=== PATIENT | female | born 1965 | race African-American/Black ===

== ENCOUNTER 2016-09-02 15:34 | Emergency (ER) | payer OTHER ==
[~2016-09-02] VITALS: Ht 167.6 cm; Wt 105.2 kg
[~2016-09-02 15:34] MED LIST: AMBIEN 5 MG TABL5 M1 PO; ESTRACE0.5 MG PO; FLONASE 0.05%50 MCG NASAL; KLONOPIN0.5 MG PER TUBE; NAPROSYN500 MG PO; PREDNISONE50 MG PO; TESSALON PERLE100 MG PO; VENTOLIN HFA 1818 GM INH; VITAMIN D1000 UNI1 PO; ZOLOFT 50 MG TA50 M1 PO; ZPAK PO
[2016-09-02] MEDS ORDERED: AFRIN15 ML NS (16:30)
[2016-09-02] MEDS ORDERED: DELTASONE20 MG PO (16:30)
[2016-09-02 16:38] VITALS: BP 126/80
== END 2016-09-02 16:40 | disposition home or self-care (01) ==
LOC: ER 15:34
DX: J06.9 Acute upper respiratory infection, unspecified (principal); F32.9 Major depressive disorder, single episode, unspecified; Z90.710 Acquired absence of both cervix and uterus; Z88.1 Allergy status to other antibiotic agents; Z88.2 Allergy status to sulfonamides

== ENCOUNTER 2017-12-23 00:47 | Inpatient (IN) | payer OTHER ==
[~2017-12-23] VITALS: Ht 167.6 cm; Wt 111.9 kg
[2017-12-23] VITALS (7 sets, daily range): BP systolic 127–136; BP diastolic 45–72
--- NOTE | ~2017-12-23 | EKG ---
[address] [address] ELECTROCARDIOGRAM REPORT Name: ROGERIO BECKETT Room #: 209-P ADM IN M.R.#: [id number] Admission: 12/23/17 Attend Phys: Erick Ng MD Discharge: Date of : 67 Report #: [id number] THIS REPORT FOR: //name// [facility] ED Test Date: 2017-12-23 Test Time: 00:52:02 Pat Name: ROGERIO BECKETT Department: Room: 209 Gender: F Climate Change Risk Assessor: Aldo DE JESUS : 1965 Requested By: Denilson Rodarte Order Number: [id number] MD: Klever Doherty Measurements Intervals [place] Rate: 68 P: 67 MS: 195 QRS: 25 QRSD: 99 T: 36 QT: 394 QTc: 420 Interpretive Statements Sinus rhythm Baseline wander in lead(s) V6 Compared to ECG 12/17/2015 21:14:38 Poor R-wave progression no longer present T-wave abnormality no longer present Electronically Signed On 12-23-2017 9:11:24 CDT by Klever Doherty [email or web address] <ELECTRONICALLY SIGNED> By: Klever Doherty MD, [facility] 12/23/17 0911 005 005 Klever Doherty MD, [facility] /EPI
--- NOTE | ~2017-12-23 | 2DMMODE ---
[facility] [address] [place] [address] 2 D/M-MODE ECHOCARDIOGRAM Name: ROGERIO BECKETT Room #: 209-P [facility] IN M.R.#: [id number] Admission: 12/23/17 Attend Phys: Henrik Buck MD Discharge: Date of : 67 Date of Service: 12/24/17 0903 Report #: [id number] THIS REPORT FOR: //name// APPROVED REPORT Study performed: 12/24/2017 08:21:28 EXAM: Comprehensive 2D, Doppler, and color-flow Echocardiogram Patient Location: Echo lab Room #: 209 Status: routine BSA: 2.20 HR: 65 bpm BP: 134/62 mmHg Rhythm: NSR Other Information Study Quality: Good Indications Chest pain. Hx: HTN, HLP, obesity 2D Dimensions RVDd: 36.55 mm LVEF(%): 70.38 (>50%) IVSd: 11.00 (7-11mm) LVOT Diam: 21.70 (18-24mm) LVDd: 46.41 mm PWd: 11.00 (7-11mm) Ascending Ao: 33.55 (22-36mm) LVDs: 27.96 (25-40mm) Aortic Root: 34.45 mm Edwards's LVEF: 70.38 % Volumes Left Atrial Volume (Systole) Single Plane 4CH: 61.30 mL Single Plane 2CH: 73.48 mL LA ESV Index: 33.00 mL/m2 Aortic Valve AoV Peak Dallas.: 1.54 m/s AO Peak Gr.: 9.45 mmHg LVOT Max P.36 mmHg LVOT Max V: 1.26 m/s JOSH Vmax: 3.03 cm2 Mitral Valve E/A Ratio: 1.8 MV Decel. Time: 175.48 ms [facility] [place] [address] 2 D/M-MODE ECHOCARDIOGRAM Name: SUJIT,ROGERIOFERNANDEZ HORTON Room #: 209-P [facility] IN M.R.#: [id number] Admission: 12/23/17 Attend Phys: Henrik Buck MD Discharge: Date of : 67 Date of Service: 12/24/17 0903 Report #: [id number] MV E Max Dallas.: 1.08 m/s MV A Dallas.: 0.60 m/s MV PHT: 50.89 ms IVRT: 78.43 ms Pulmonary Valve PV Peak Dallas.: 1.05 m/s PV Peak Gr.: 4.38 mmHg Pulmonary Vein P Vein S: 0.69 m/s P Vein A: 0.27 m/s P Vein D: 0.59 m/s P Vein A Dur.: 110.7 msec P Vein S/D Ratio: 1.17 Tricuspid Valve TR Peak Dallas.: 2.60 m/s RAP Estimate: 5.00 mmHg TR Peak Gr.: 27.12 mmHg PA Pressure: 32.00 mmHg Left Ventricle The left ventricle is normal size. There is normal LV segmental wall motion. Borderline concentric left ventricular hypertrophy. Left ventricular systolic function is normal. LVEF is 60-65%. Left ventricular filling pattern is normal for age. Right Ventricle The right ventricle is normal size. The right ventricular systolic function is normal. Atria Left atrium is at the upper limits of normal. The right atrium size is normal. Aortic Valve The aortic valve is normal in structure, trileaflet. Trace aortic regurgitation. There is no aortic valvular stenosis. Mitral Valve The mitral valve is normal in structure. Mild mitral regurgitation. Tricuspid Valve The tricuspid valve is normal in structure. Mild tricuspid regurgitation. Estimated PAP is 30-35mmHg. Pulmonic Valve The pulmonary valve is normal in structure[place] [address] 2 D/M-MODE ECHOCARDIOGRAM Name: ROGREIO BECKETT Room #: 209-P [facility] IN [facility]#: [id number] Admission: 12/23/17 Attend Phys: Henrik Buck MD Discharge: Date of : 67 Date of Service: 12/24/17 0903 Report #: [id number] regurgitation. Great Vessels The aortic root is normal in size. The ascending aorta is normal in size. IVC is normal in size and collapses >50% with inspiration. Pericardium There is no pericardial effusion. <Conclusion> Left ventricular systolic function is normal. There is normal LV segmental wall motion. LVEF 60-65%. Left ventricular filling pattern is normal for age. The aortic valve is normal in structure, trileaflet. Trace aortic regurgitation, no stenosis. The mitral valve is normal in structure. Mild mitral regurgitation. Mild tricuspid regurgitation. Estimated pulmonary artery pressure of 30-35mmHg. There is no pericardial effusion. <ELECTRONICALLY SIGNED> By: Klever Doherty MD, FACC 12/24/17902 2 2 Klever Doherty MD, FACC /INF
[~2017-12-23 00:47] MED LIST changes: +AFRIN15 ML NS; +DELTASONE20 MG PO
[2017-12-23 01:14] LABS: ABSOLUTE NEUTROPHILS 5.7 thou/uL (1.4-8.2); BASOPHILS 0.6 % (0.0-2.0); EOSINOPHILS 1.8 % (0.0-3.0); HEMATOCRIT 39.3 % (37.0-47.0); HEMOGLOBIN 12.8 gm/dL (12.0-15.0); LYMPHOCYTES 34.7 % (24.0-44.0); MCH 25.7 pg (26.0-34.0); MCHC 32.5 g/dL (28.0-37.0); MCV 79.3 fL (80.0-100.0); MONOCYTES 6.7 % (1.0-8.0); PLATELET COUNT 299 thou/uL (150-400); POLYS 56.2 % (36.0-66.0); RBC 4.96 mil/uL (4.20-5.00); RDW 13.4 % (10.5-14.5); WBC 10.1 thou/uL (4.0-11.0)
[2017-12-23 01:27] LABS: ANION GAP 7 mmol/L (7-16); BUN 8 mg/dL (7-18); CALCIUM 9.5 mg/dL (8.5-10.1); CHLORIDE 107 mmol/L (98-107); CO2 27 mmol/L (21-32); CREATININE 0.8 mg/dL (0.6-1.0); GLUCOSE 123 mg/dL (74-106); POTASSIUM 3.6 mmol/L (3.5-5.1); SODIUM 141 mmol/L (136-145)
[2017-12-23 01:36] LABS: TROPONIN-I < 0.04 ng/mL (<0.06)
[2017-12-23] MEDS ORDERED: ATORVASTATIN CA40 MG PO (01:38)
[2017-12-23] MEDS ORDERED: COREG6.25 MG PO (01:39)
[2017-12-23] MEDS ORDERED: PROTONIX40 M1 PO (04:08)
[2017-12-23] MEDS ORDERED: CLONAZEPAM1 MG PO (04:11)
[2017-12-23 11:45] LABS: CHOLESTEROL 135 mg/dL (<200); HDL CHOLESTEROL 38 mg/dL (>40); LDL CHOLESTEROL 72 mg/dL (<100); TC:HDL 3.6 Ratio (Not establshd); TRIGLYCERIDE 127 mg/dL (<150); VLDL 25 mg/dL (<40)
[2017-12-24 04:43] VITALS: BP 134/62
[2017-12-24 05:10] LABS: GLYCOHEMOGLOBIN (HGB A1C) 5.9 % (4.8-5.6)
[2017-12-24 11:00] VITALS: BP 135/70
[2017-12-24 20:12] VITALS: BP 143/81
[2017-12-25 05:21] VITALS: BP 112/57
[2017-12-25 07:41] VITALS: BP 133/49
[2017-12-25 13:20] VITALS: BP 133/49
[2017-12-25 13:23] VITALS: BP 133/49
== END 2017-12-25 14:45 | disposition home or self-care (01) | DRG 313 ==
LOC: ER 00:47 → 2N 02:40 → EROBS 02:40 → 2N 03:09 → ENTRNSPT 12-25 14:22 → EDTRNSPTSTS 12-25 14:36 → 2N 12-25 14:45
PROVIDERS: Emergency Medicine; Nurse Practitioner
DX: R07.89 Other chest pain (principal); F32.9 Major depressive disorder, single episode, unspecified; I10 Essential (primary) hypertension; E78.5 Hyperlipidemia, unspecified; F41.9 Anxiety disorder, unspecified; G47.33 Obstructive sleep apnea (adult) (pediatric); K21.9 Gastro-esophageal reflux disease without esophagitis; Z90.710 Acquired absence of both cervix and uterus; Z88.1 Allergy status to other antibiotic agents; Z88.2 Allergy status to sulfonamides; Z88.8 Allergy status to other drugs, medicaments and biological substances; Z82.49 Family history of ischemic heart disease and other diseases of the circulatory system; Z79.82 Long term (current) use of aspirin; Z79.899 Other long term (current) drug therapy
CPT/HCPCS: 10081

== ENCOUNTER 2018-03-17 22:25 | Emergency (ER) | payer OTHER ==
[~2018-03-17] VITALS: Ht 167.6 cm; Wt 108.0 kg
--- NOTE | ~2018-03-17 | EKG ---
[address] [address] ELECTROCARDIOGRAM REPORT Name: ROGERIO BECKETT [facility] [id number] Admission: 03/17/18 Attend Phys: Discharge: 03/18/18 Date of : 67 Report #: [id number] THIS REPORT FOR: //name// [facility] ED Test Date: 2018-03-17 Test Time: 23:17:29 Pat Name: ROGERIO BECKETT Department: Room: Gender: F Criminal Investigator: eliot : 1965 Requested By: Akil Woodard Order Number: [id number] MD: Klever Doherty Measurements Intervals [place] Rate: 59 P: 33 MS: 190 QRS: 18 QRSD: 101 T: 37 QT: 413 QTc: 410 Interpretive Statements Sinus bradycardia Otherwise no significant abnormality Compared to ECG 12/23/2017 00:52:02 No significant change was found Electronically Signed On 03-18-2018 7:31:38 CDT by Klever Doherty [email or web address] <ELECTRONICALLY SIGNED> By: Klever Doherty MD, [facility] 03/18/18 0731 2317 16 Klever Doherty MD, FACC /EPI
[~2018-03-17 22:25] MED LIST changes: +ATORVASTATIN CA40 MG PO; +CLONAZEPAM1 MG PO; +COREG6.25 MG PO; +PROTONIX40 M1 PO
[2018-03-17] MEDS ORDERED: DICLOFENAC SODI75 MG PO (23:06)
[2018-03-17] MEDS ORDERED: ULTRAM 50MG TAB50 MG PO (23:06)
[2018-03-17 23:10] LABS: ABSOLUTE NEUTROPHILS 4.9 thou/uL (1.4-8.2); BASOPHILS 0.6 % (0.0-2.0); EOSINOPHILS 2.8 % (0.0-3.0); HEMATOCRIT 37.8 % (37.0-47.0); HEMOGLOBIN 12.4 gm/dL (12.0-15.0); LYMPHOCYTES 37.9 % (24.0-44.0); MCH 25.9 pg (26.0-34.0); MCHC 32.8 g/dL (28.0-37.0); MONOCYTES 4.9 % (1.0-8.0); PLATELET COUNT 263 thou/uL (150-400); POLYS 53.8 % (36.0-66.0); RBC 4.79 mil/uL (4.20-5.00); RDW 14.4 % (10.5-14.5); WBC 9.1 thou/uL (4.0-11.0)
[2018-03-17 23:21] LABS: ANION GAP 8 mmol/L (7-16); BUN 14 mg/dL (7-18); CHLORIDE 108 mmol/L (98-107); CO2 26 mmol/L (21-32); CREATININE 1.1 mg/dL (0.6-1.0); GLUCOSE 138 mg/dL (74-106); SODIUM 142 mmol/L (136-145)
[2018-03-17 23:28] LABS: ALBUMIN 3.2 g/dL (3.4-5.0); MAGNESIUM 1.9 mg/dL (1.8-2.4); SGOT 29 U/L (15-37); SGPT 37 U/L (30-65); TOTAL BILIRUBIN 0.3 mg/dL (<0.1-1.0); TOTAL PROTEIN 6.7 g/dL (6.4-8.2); TROPONIN-I <0.06 ng/mL (<0.06)
[2018-03-17 23:30] LABS: APTT 25.3 Seconds (24.5-32.8); PROTIME 9.6 Seconds (9.3-11.4)
[2018-03-18 00:19] LABS: AMP/METHAMP Negative (Negative); BARBITURATES Negative (Negative); BENZODIAZEPINES Negative (Negative); COCAINE Negative (Negative); METHADONE Negative (Negative); OPIATES Negative (Negative); PCP Negative (Negative)
[2018-03-18] MEDS ORDERED: CARAFATE1 GM/10 ML PO (02:18)
[2018-03-18 03:24] VITALS: BP 135/72
== END 2018-03-18 03:25 | disposition home or self-care (01) ==
LOC: ER 22:25
PROVIDERS: Emergency Medicine
DX: K21.9 Gastro-esophageal reflux disease without esophagitis (principal); K20.9 Esophagitis, unspecified; J02.9 Acute pharyngitis, unspecified; F32.9 Major depressive disorder, single episode, unspecified; E78.5 Hyperlipidemia, unspecified; I10 Essential (primary) hypertension; E78.00 Pure hypercholesterolemia, unspecified; E66.9 Obesity, unspecified; Z68.38 Body mass index [BMI] 38.0-38.9, adult; Z90.710 Acquired absence of both cervix and uterus; Z88.1 Allergy status to other antibiotic agents; Z88.2 Allergy status to sulfonamides

== ENCOUNTER 2018-08-15 18:47 | Emergency (ER) | payer OTHER ==
[~2018-08-15] VITALS: Ht 167.6 cm; Wt 108.0 kg
[~2018-08-15 18:47] MED LIST changes: +CARAFATE1 GM/10 ML PO; +DICLOFENAC SODI75 MG PO; +ULTRAM 50MG TAB50 MG PO
[2018-08-15] MEDS ORDERED: ALEVE220 MG PO (19:02)
[2018-08-15] MEDS ORDERED: GABAPENTIN 100100 MG PO (19:03)
[2018-08-15] MEDS ORDERED: AMBIEN 5 MG TABL5 M1 PO (19:03)
[2018-08-15] MEDS ORDERED: ROBAXIN 750 MG750 M1 PO (19:04)
[2018-08-15] MEDS ORDERED: ZANTAC 150MG T150 MG PO (19:04)
[2018-08-15 19:30] LABS: URINE BILIRUBIN NEGATIVE (Negative); URINE BLOOD NEGATIVE (Negative); URINE CLARITY CLOUDY; URINE COLOR YELLOW; URINE GLUCOSE-RANDOM* NEGATIVE (Negative); URINE KETONES NEGATIVE (Negative); URINE LEUKOCYTES-REFLEX NEGATIVE (Negative); URINE NITRITE-REFLEX NEGATIVE (Negative); URINE PROTEIN (DIPSTICK) NEGATIVE (Negative); URINE SPECIFIC GRAVITY >= 1.030 (1.005-1.035); URINE UROBILINOGEN 0.2 E.U./dl (0.2-1.0)
[2018-08-15 19:43] LABS: ABSOLUTE NEUTROPHILS 4.9 thou/uL (1.4-8.2); BASOPHILS 0.7 % (0.0-2.0); EOSINOPHILS 2.2 % (0.0-3.0); HEMATOCRIT 40.4 % (37.0-47.0); HEMOGLOBIN 13.4 gm/dL (12.0-15.0); LYMPHOCYTES 36.8 % (24.0-44.0); MCH 26.5 pg (26.0-34.0); MCHC 33.2 g/dL (28.0-37.0); MCV 79.6 fL (80.0-100.0); MONOCYTES 6.5 % (1.0-8.0); PLATELET COUNT 299 thou/uL (150-400); POLYS 53.8 % (36.0-66.0); RBC 5.07 mil/uL (4.20-5.00); RDW 13.9 % (10.5-14.5); WBC 9.1 thou/uL (4.0-11.0)
[2018-08-15 19:52] LABS: CALCIUM 9.4 mg/dL (8.5-10.1); POTASSIUM 3.9 mmol/L (3.5-5.1)
[2018-08-15] MEDS ORDERED: PREDNISONE 20 M20 MG PO (21:08)
[2018-08-15] MEDS ORDERED: MOBIC15 MG PO (21:08)
[2018-08-15] MEDS ORDERED: VOLTAREN GEL 1100 G2 TOP (21:08)
[2018-08-15 21:11] VITALS: BP 114/55
== END 2018-08-15 21:16 | disposition home or self-care (01) ==
LOC: ER 18:47
PROVIDERS: Emergency Medicine
DX: M25.561 Pain in right knee (principal); M25.552 Pain in left hip; M25.551 Pain in right hip; M25.511 Pain in right shoulder; M25.512 Pain in left shoulder; F32.9 Major depressive disorder, single episode, unspecified; E78.5 Hyperlipidemia, unspecified; I10 Essential (primary) hypertension; G47.30 Sleep apnea, unspecified; Z88.8 Allergy status to other drugs, medicaments and biological substances; Z88.1 Allergy status to other antibiotic agents; Z88.2 Allergy status to sulfonamides; Z90.710 Acquired absence of both cervix and uterus

== ENCOUNTER 2019-06-07 00:56 | Emergency (ER) | payer OTHER ==
[~2019-06-07] VITALS: Ht 167.6 cm; Wt 109.8 kg
--- NOTE | ~2019-06-07 | EMS ---
[address] [address] EMS Patient Care Report Name: ROGERIO BECKETT Room #: REG DK Watts#: [id number] Admission: 06/07/19 Attend Phys: Discharge: Date of : 67 Report #: [id number] THIS REPORT FOR: //name// Report Transmitted: 06/07/2019 00:38 EMS Care Summary [facility] MED-ACT Incident [id number] @ 06/07/2019 00:14 Incident Location [address] [place] [address] Patient ROGERIO BECKETT Female, 54 Years 1965 Patient Address [address] [place] [address] Patient History Hypertension,Anxiety Disorder (Panic Attacks),Anxiety,Myocardial Infarction (AZ), Patient Allergies Sulfa, Patient Medications Metformin, Meloxicam, Ranitidine, Pantoprazole, Carvedilol, Tramadol, Chief Complaint Chest pain. Disposition Transported No Lights/[place] Dispatch Reason Chest Pain (Non-Traumatic) Transported To [facility] Narrative History: Pt reports she began experiencing sub-sternal crushing chest pain approximately 5 minutes prior to EMS arrival. Pt reports the pain "ramped up" to an 8/10. Pt denies any radiation of the pain. Pt reports this pain feels [address] [address] EMS Patient Care Report Name: ROGERIO BECKETT Room #: REG DK aWtts#: [id number] Admission: 06/07/19 Attend Phys: Discharge: Date of : 67 Report #: [id number] like the last time she was hospitalized for chest pain in 2014. Pt reports at that time that she was diagnosed with a "mild heart attack." Pt also reports she believes this could possibly be anxiety, as she has been dealing with more stress lately. Pt denies any shortness of breath, syncope, N/V/D, or other recent illness. Pt denies any pain on palpation or movement. No other complaints noted at this time. Assessment: Pt was found laying supine in bed. Pt ABCs in tact. Pt A&Ox4. Pt did not appear to be in any obvious distress. Pt skin warm, dry, and normal in color. See assessment tab for detailed physical exam findings and pertinent negatives. Treatment: Primary. VS w/ bilateral BP. HPI. Physical exam. Pt given 324 mg of ASA PO. ECG. Pt ambulatory to EMS stretcher on driveway of home and secured in semi-guillermo's position. Pt moved via stretcher to ambulance. IV established 18 g in pt's L AC w/ NS TKO. Pt declined offers for pain medicine. Pt appears to be tolerating pain well. Transport: En route, continue with on-going assessment. Biocom to [facility] ED. Pt VS and condition remained stable throughout continuous on-going assessments. No other changes noted during transport phase. Destination: Pt was moved via stretcher to ED room 1. Pt ambulatory to ED bed. Report provided to attending full time staff interpreter. Patient signed. Care transferred. Initial Vitals @00:24P: 82,R: 16,BP: 128/65,Pain: 8/10,GCS: 15,SpO2: 98,Revised Trauma: 12,AZ Suspected: false @00:37P: 77,R: 16,BP: 106/52,Pain: 6/10,GCS: 15,Glucose: 116,SpO2: 97,Revised Trauma: 12,AZ Suspected: false @00:21P: 95,R: 16,BP: 144/79,Pain: 8/10,GCS: 15,SpO2: 98,Revised Trauma: 12, @00:43P: 74,R: 16,BP: 122/90,Pain: 6/10,GCS: 15,SpO2: 96,Revised Trauma: 12, Assessments @00:24MENTAL:Time Oriented,Person Oriented,Event Oriented,Place Oriented,SKIN:HEENT:LUNG SOUNDS:ABDOMEN:PELVIS//GI:EXTREMITIES:Left Arm: No Abnormalities,Right Arm: No Abnormalities,PULSE:NEURO: Impression Chest Pain / Discomfort Procedures @00:22ALS AssessmentResponse: UnchangedSucceeded@00:37Normal Saline (.9% NaCl) 10cc (18 ga) Site: Antecubital-LeftResponse: UnchangedSucceeded@00:2412-Lead ECGResponse: UnchangedSucceeded@00:3712-Lead ECGResponse: UnchangedSucceeded@00:24Aspirin - 324 Milligrams (mg) - OralResponse: Unchanged [address] [address] EMS Patient Care Report Name: ROGERIO BECKETT Room #: REG DK Watts#: [id number] Admission: 06/07/19 Attend Phys: Discharge: Date of : 67 Report #: [id number] Timeline 00:13,Call Received 00:13,Psap Call 00:14,Dispatched 00:15,En Route 00:19,On Scene 00:21,At Patient 00:21,BP: 144/79 M,PULSE: 95,RR: 16 R,SPO2: 98 Ox,ETCO2: ,BG: ,PAIN: 8,GCS: 15, 00:22,ALS Assessment,Response: UnchangedSucceeded, 00:24,12-Lead ECG,Response: UnchangedSucceeded, 00:24,BP: 128/65 M,PULSE: 82,RR: 16 R,SPO2: 98 Ox,ETCO2: ,BG: ,PAIN: 8,GCS: 15, 00:24,Aspirin - 324 Milligrams (mg) - Oral,Response: Unchanged 00:36,Depart Scene 00:37,12-Lead ECG,Response: UnchangedSucceeded, 00:37,BP: 106/52 M,PULSE: 77,RR: 16 R,SPO2: 97 Ox,ETCO2: ,B,PAIN: 6,GCS: 15, 00:37,Normal Saline (.9% NaCl) 10cc 18 ga Site: Antecubital-Left,Response: UnchangedSucceeded, 00:43,BP: 122/90 M,PULSE: 74,RR: 16 R,SPO2: 96 Ox,ETCO2: ,BG: ,PAIN: 6,GCS: 15, 00:54,At Destination 01:08,Call Closed Disclaimer v1.1 Copyright 2019 [employer] This EMS Care Summary contains data elements from the applicable legal record (which may be displayed differently). It is designed to provide pertinent information for the following purposes: continuity of care, clinical quality, and state data reporting. The complete legal record is available to ED staff and administrators of the receiving hospital in [employer]'s Patient Tracker. All data is provided "as is."
[~2019-06-07 00:56] MED LIST changes: +ALEVE220 MG PO; +GABAPENTIN 100100 MG PO; +MOBIC15 MG PO; +PREDNISONE 20 M20 MG PO; +ROBAXIN 750 MG750 M1 PO; +VOLTAREN GEL 1100 G2 TOP; +ZANTAC 150MG T150 MG PO
[2019-06-07] MEDS ORDERED: CYMBALTA20 MG PO (01:12)
[2019-06-07 01:36] LABS: ABSOLUTE NEUTROPHILS 4.3 thou/uL (1.4-8.2); EOSINOPHILS 2.9 % (0.0-3.0); HEMATOCRIT 37.9 % (37.0-47.0); HEMOGLOBIN 12.3 gm/dL (12.0-15.0); LYMPHOCYTES 45.6 % (24.0-44.0); MCH 25.7 pg (26.0-34.0); MCHC 32.5 g/dL (28.0-37.0); MONOCYTES 7.7 % (1.0-8.0); PLATELET COUNT 304 thou/uL (150-400); POLYS 42.8 % (36.0-66.0); WBC 10.1 thou/uL (4.0-11.0)
[2019-06-07 01:40] LABS: ANION GAP 9 mmol/L (7-16); BUN 13 mg/dL (7-18); CHLORIDE 109 mmol/L (98-107); CO2 27 mmol/L (21-32); CREATININE 0.9 mg/dL (0.6-1.0); GLUCOSE 101 mg/dL (74-106); POTASSIUM 4.3 mmol/L (3.5-5.1); SODIUM 145 mmol/L (136-145)
[2019-06-07 01:48] LABS: TROPONIN-I <0.06 ng/mL (<0.06)
[2019-06-07 02:50] VITALS: BP 119/61
--- NOTE | 2019-06-07 09:02 | EKG ---
[place] [address] [facility] [place] [address] ELECTROCARDIOGRAM REPORT Name: SUJITROGERIO CLIFFORD [facility] [id number] Admission: 06/07/19 Attend Phys: Discharge: 06/07/19 Date of : 67 Report #: [id number] THIS REPORT FOR: //name// [facility] ED Test Date: 2019-06-07 Test Time: 00:57:04 Pat Name: ROGERIO BECKETT Department: Room: Gender: F Hedis Registered Nurse Rn: AGNELICA : 1965 Requested By: Denilson Rodarte Order Number: [id number] MD: Klever Doherty Measurements Intervals [place] Rate: 69 P: 53 MS: 177 QRS: 19 QRSD: 96 T: 51 QT: 395 QTc: 423 Interpretive Statements Sinus rhythm No significant abnormality Compared to ECG 03/17/2018 23:17:29 Sinus bradycardia no longer present Electronically Signed On 06-07-2019 9:01:57 CDT by Klever Doherty [email or web address] <ELECTRONICALLY SIGNED> By: Klever Doherty MD, [facility] 06/07/19 0901 0057 005 Klever Doherty MD, FACC /EPI
== END 2019-06-07 02:51 | disposition home or self-care (01) ==
LOC: ER 00:56
PROVIDERS: Emergency Medicine
DX: R07.9 Chest pain, unspecified (principal); I10 Essential (primary) hypertension; E78.5 Hyperlipidemia, unspecified; G47.30 Sleep apnea, unspecified; F32.9 Major depressive disorder, single episode, unspecified; Z90.710 Acquired absence of both cervix and uterus; Z88.1 Allergy status to other antibiotic agents; Z88.2 Allergy status to sulfonamides; Z88.8 Allergy status to other drugs, medicaments and biological substances